=== PATIENT | female | born 1930 | race Caucasian/White ===

== ENCOUNTER 2018-11-05 08:14 | Emergency (ER) | payer MEDICARE, OTHER ==
[~2018-11-05] VITALS: Ht 162.6 cm; Wt 52.4 kg
[2018-11-05] MEDS ORDERED: PRAV20TA2 PO (08:26)
[2018-11-05 09:09] LABS: BASO % 0.3 % (0.0-1.0); EOS # 0.1 10^3/uL (0.0-0.5); EOS % 0.5 % (0.0-3.0); HEMATOCRIT 39.5 % (36.0-47.0); HEMOGLOBIN 13.6 g/dl (12.0-15.5); LYMPH # 1.4 10^3/uL (1.5-5.0); LYMPH % 9.1 % (24.0-44.0); MEAN CORPUSCULAR HEMOGLOBIN 30.7 pg (27.0-33.0); MEAN CORPUSCULAR HGB CONC 34.4 g/dl (32.0-36.5); MEAN CORPUSCULAR VOLUME 89.2 fl (80.0-96.0); MONO # 1.3 10^3/uL (0.0-0.8); MONO % 8.7 % (0.0-5.0); NEUTROPHILS # 12.4 10^3/uL (1.5-8.5); NEUTROPHILS % 80.7 % (36.0-66.0); PLATELET COUNT, AUTOMATED 176 10^3/uL (150-450); RED BLOOD COUNT 4.43 10^6/uL (4.00-5.40); WHITE BLOOD COUNT 15.3 10^3/uL (4.0-10.0)
[2018-11-05 09:25] LABS: ALT/SGPT 14 U/L (12-78); BLOOD UREA NITROGEN 15 MG/DL (7-18); CALCIUM LEVEL 8.7 MG/DL (8.8-10.2); CARBON DIOXIDE LEVEL 25 MEQ/L (21-32); CHLORIDE LEVEL 98 MEQ/L (98-107); CREATININE FOR GFR 0.48 MG/DL (0.55-1.30); GLOMERULAR FILTRATION RATE > 60.0 (>32); GLUCOSE, FASTING 116 MG/DL (70-100); POTASSIUM SERUM 3.8 MEQ/L (3.5-5.1); SODIUM LEVEL 130 MEQ/L (136-145); TOTAL PROTEIN 6.6 GM/DL (6.4-8.2)
[2018-11-05] MEDS ORDERED: DOXY100C37 PO (09:58)
[2018-11-05 10:15] VITALS: BP 142/76
--- NOTE | 2018-11-05 10:21 | REP ---
CHEST, TWO VIEWS: Two views of the chest are performed. There are no prior studies for comparison. There is a band of density in the right upper lobe inferolaterally, which could represent a small area of infiltrate versus fibrosis. No other significant abnormal parenchymal opacity is seen. There is mild cardiomegaly. There is mild calcification of the thoracic aorta. The mediastinal silhouette is otherwise unremarkable. There is osteopenia with mild degenerative changes of the spine. IMPRESSION: Small area of focal infiltrate or fibrosis right upper lobe. Mild cardiomegaly. Electronically Signed by Mendoza Sterling MD 11/05/2018 10:58 A
--- NOTE | 2018-11-05 19:21 | ECGEPIP ---
[facility] - ED Test Date: 2018-11-05 Pat Name: COOPER PINK Department: Room: - Gender: Female [employer]er: : 1930 Requested By: Shandra Dsouza Order Number: [id number] Reading MD: Jerardo Last Measurements Intervals [place] Rate: 78 P: 55 ME: 177 QRS: 46 QRSD: 78 T: 36 QT: 343 QTc: 391 Interpretive Statements SINUS RHYTHM WITH OCCASIONAL SUPRAVENTRICULAR PREMATURE COMPLEXES POSSIBLE LEFT ATRIAL ENLARGEMENT NO PRIORS FOR COMPARISON Electronically Signed on 11-05-2018 19:21:35 EDT by Jerardo Last
== END 2018-11-05 10:16 | disposition home or self-care (01) ==
LOC: M ED 08:14
DX: R91.8 Other nonspecific abnormal finding of lung field (principal); I51.7 Cardiomegaly; J34.89 Other specified disorders of nose and nasal sinuses; R05 Cough; R51 Headache; E78.5 Hyperlipidemia, unspecified; Z79.899 Other long term (current) drug therapy

== ENCOUNTER 2019-11-21 14:41 | Emergency (ER) | payer MEDICARE, OTHER ==
[~2019-11-21] VITALS: Ht 162.6 cm; Wt 54.5 kg
[~2019-11-21 14:41] MED LIST: DOXY100C37 PO; PRAV20TA2 PO
[2019-11-21] MEDS ORDERED: VITALIQ26 XX (14:59)
[2019-11-21] MEDS ORDERED: PRESCAP PO (14:59)
--- NOTE | 2019-11-21 15:59 | REPVR ---
PROCEDURE INFORMATION: Exam: CT Maxillofacial Without Contrast Exam date and time: 11/21/2019 3:14 PM Age: 88 years old Clinical indication: Injury or trauma; Fall; Initial encounter; Blunt trauma (contusions or hematomas); Eyelid and orbit/periorbital; Upper right TECHNIQUE: Imaging protocol: Computed tomography images of the face without contrast. Radiation optimization: All CT scans at this facility use at least one of these dose optimization techniques: automated exposure control; mA and/or kV adjustment per patient size (includes targeted exams where dose is matched to clinical indication); or iterative reconstruction. COMPARISON: No relevant prior studies available. FINDINGS: Orbits: Bilateral prior cataract surgery. Bones/joints: Nondisplaced fracture right zygomatic process of temporal bone. Minimally displaced fractures posterior wall right maxillary sinus. Nondisplaced fractures anterior superolateral right orbital wall. Comminuted mildly displaced fractures of the upper right zygomaticofrontal arch. Mildly comminuted fracture inferolateral right maxillary sinus. Minimally displaced fracture medial right orbital floor (no soft tissue herniation). Left temporomandibular joint primary osteoarthritis. Paranasal sinuses: The dependent fluid/hemorrhage posterior right maxillary sinus. Soft tissues: Mild superficial soft tissue edema adjacent to the right zygomaticofrontal arch. IMPRESSION: Right trimalar/orbital floor fractures. Electronically signed by: Omar Bryan On 11/21/2019 15:59:02 PM
--- NOTE | 2019-11-21 16:03 | REPVR ---
PROCEDURE INFORMATION: Exam: CT Head Without Contrast Exam date and time: 11/21/2019 3:14 PM Age: 88 years old Clinical indication: Injury or trauma; Fall; Initial encounter; Blunt trauma (contusions or hematomas) TECHNIQUE: Imaging protocol: Computed tomography of the head without contrast. Radiation optimization: All CT scans at this facility use at least one of these dose optimization techniques: automated exposure control; mA and/or kV adjustment per patient size (includes targeted exams where dose is matched to clinical indication); or iterative reconstruction. COMPARISON: No relevant prior studies available. FINDINGS: Brain: Moderate hypoattenuating foci are noted in the anterior lateral ventricular periventricular white matter bilaterally. Mild left globus pallidus calcification. No intracranial hemorrhage. No mass or acute cortical infarction identified. Ventricles: Prominence of the subarachnoid spaces is consistent with the patient's age of 88 years. Disproportionate enlargement of the lateral ventricles is present with an Grajeda ratio of 40.0%. The anterior third ventricular transverse dimension is 10.8 mm. The fourth ventricle is normal in size. Bones/joints: Unremarkable. No acute fracture. Paranasal sinuses: Opacified upper right maxillary sinus with wall thickening. Mastoid air cells: Visualized mastoid air cells are well aerated. Vasculature: Atherosclerotic calcifications are present involving the carotid artery siphons bilaterally and the left vertebral artery. Soft tissues: Unremarkable. IMPRESSION: 1. Disproportionate prominence of the lateral and third ventricles. Recommend clinical exclusion of symptoms of normal pressure hydrocephalus. Otherwise, age appropriate supratentorial and infratentorial atrophy. 2. Moderate chronic white matter microvascular ischemic disease. 3. No acute intracranial injury identified. 4. Chronic right maxillary sinusitis. Electronically signed by: Omar Bryan On 11/21/2019 16:02:37 PM
--- NOTE | 2019-11-21 16:10 | REPVR ---
PROCEDURE INFORMATION: Exam: CT Cervical Spine Without Contrast Exam date and time: 11/21/2019 3:14 PM Age: 88 years old Clinical indication: Injury or trauma; Fall; Initial encounter; Blunt trauma TECHNIQUE: Imaging protocol: Computed tomography images of the cervical spine without contrast. Radiation optimization: All CT scans at this facility use at least one of these dose optimization techniques: automated exposure control; mA and/or kV adjustment per patient size (includes targeted exams where dose is matched to clinical indication); or iterative reconstruction. COMPARISON: No relevant prior studies available. FINDINGS: Vertebrae: Left C4-C5 facet fusion. Mild C6-C7 and C7-T1 anterolisthesis. Discs/Spinal canal/Neural foramina: Moderate right C3-C4 primary facet osteoarthritis. Mild left C3-C4 primary facet osteoarthritis. Moderate right C3-C4 neural foraminal narrowing. Moderate right C5-C6 and C6-C7 primary facet osteoarthritis. Mild bilateral C7-T1 primary facet osteoarthritis. Other bones/joints: Healed right mandibular condylar neck fracture. Rudimentary bilateral C7 cervical ribs. Soft tissues: Unremarkable. Thyroid: Multiple bilateral thyroid hypodensities, largest on the right measuring 12 mm. Lungs: Lung apices are normal. IMPRESSION: 1. Degenerative changes as above. 2. No acute cervical spinal bony injury identified. 3. Recommend nonemergent thyroid sonography for further evaluation of a possible right thyroid nodule. COMMENTS: Consistent with the [employer]'s Incidental Findings Committee white paper (J Am Kade Radiol 2015): In patients aged 35 years and older with an incidental thyroid nodule equal to or greater than 1.[address], MRI or extrathyroidal US, further evaluation with dedicated thyroid US is recommended for patients with normal life expectancy and without comorbidities. For smaller nodules without suspicious features, no further evaluation or follow up is recommended. Electronically signed by: Omar Bryan On 11/21/2019 16:10:20 PM
--- NOTE | 2019-11-21 16:14 | REPVR ---
PROCEDURE INFORMATION: Exam: XR Right Knee Exam date and time: 11/21/2019 3:22 PM Age: 88 years old Clinical indication: Injury or trauma; Fall; Initial encounter; Abrasion; Knee; Right TECHNIQUE: Imaging protocol: XR Right knee. Views: Frontal, lateral, 2 oblique and patellar views. COMPARISON: No relevant prior studies available. FINDINGS: Bones/joints: Normal. Soft tissues: Normal. IMPRESSION: No acute findings. Electronically signed by: Omar Bryan On 11/21/2019 16:14:22 PM
--- NOTE | 2019-11-21 16:18 | REPVR ---
PROCEDURE INFORMATION: Exam: XR Right Ribs with PA Chest, 3 Views Exam date and time: 11/21/2019 3:22 PM Age: 88 years old Clinical indication: Injury or trauma; Fall; Initial encounter; Rib area; Sprain or strain; Additional info: Trauma, right rib pain TECHNIQUE: Imaging protocol: XR Right ribs 3 views with PA chest. COMPARISON: No relevant prior studies available. FINDINGS: Lungs: Unremarkable. No consolidation. Pleural space: No pleural effusion. No pneumothorax. Heart/Mediastinum: No cardiomegaly. Bones/joints: Possible minimally displaced fracture of the anterolateral right 8th rib. Organs: The gallbladder is likely surgically absent, with metallic clips overlying the gallbladder fossa. IMPRESSION: 1. Possible minimally displaced fracture of the anterolateral right 8th rib. Clinical correlation with manual palpation is recommended. 2. Prior cholecystectomy. Electronically signed by: Omar Bryan On 11/21/2019 16:18:52 PM
[2019-11-21] MEDS ORDERED: ACETAMINOPHEN TAB 650MG DOSE (2X325MG) PO ONE (17:30)
[2019-11-21] MEDS ORDERED: DERMABOND TOPICAL SKIN ADHESIVE TOP ONE (17:30)
[2019-11-21 18:37] VITALS: BP 156/72
--- NOTE | 2019-11-21 19:49 | ED PDOC ---
Post-Departure Follow-Up dr griggs faxed formal report of ct c spine for fu Ajay Kelley MD Nov 21, 2019 19:49
== END 2019-11-21 19:00 | disposition home or self-care (01) ==
LOC: M ED 14:41
DX: S02.40EA Zygomatic fracture, right side, initial encounter for closed fracture (principal); S02.40CA Maxillary fracture, right side, initial encounter for closed fracture; S06.0X9A Concussion with loss of consciousness of unspecified duration, initial encounter; S22.31XA Fracture of one rib, right side, initial encounter for closed fracture; S80.01XA Contusion of right knee, initial encounter; W01.0XXA Fall on same level from slipping, tripping and stumbling without subsequent striking against object, initial encounter; W10.1XXA Fall (on)(from) sidewalk curb, initial encounter; Y92.511 Restaurant or cafe as the place of occurrence of the external cause; Y93.9 Activity, unspecified; Y99.9 Unspecified external cause status; Z87.891 Personal history of nicotine dependence; E78.5 Hyperlipidemia, unspecified

== ENCOUNTER → 2020-02-07 | Outpatient (REF) | payer MEDICARE, OTHER ==
[~2020-02-07] MED LIST changes: +PRESCAP PO; +VITALIQ26 XX
== END ==
LOC: M LAB REF 17:22
PROVIDERS: ATTEND Internal Medicine Endocrinology, Diabetes & Metabolism
DX: E04.2 Nontoxic multinodular goiter (principal)

== ENCOUNTER 2020-03-26 09:32 | Outpatient (CLI) | payer MEDICARE, OTHER ==
[~2020-03-26] VITALS: Ht 162.6 cm; Wt 55.0 kg
[2020-03-26 10:00] VITALS: BP 152/67
[2020-03-26] MEDS ORDERED: ZOLEDRONIC ACID 5 MG in IV 1 EA IV ONE (10:00)
[2020-03-26 11:20] VITALS: BP 169/76
== END 2020-03-26 11:20 | disposition home or self-care (01) ==
LOC: M INFU 09:32
PROVIDERS: ATTEND Internal Medicine Endocrinology, Diabetes & Metabolism
DX: M81.0 Age-related osteoporosis without current pathological fracture (principal)
CPT/HCPCS: 96365; J3489

== ENCOUNTER → 2020-05-24 | Outpatient (CLI) | payer MEDICARE, OTHER ==
[2020-05-24 12:51] LABS: BLOOD UREA NITROGEN 16 MG/DL (7-18); CALCIUM LEVEL 9.2 MG/DL (8.8-10.2); CARBON DIOXIDE LEVEL 31 MEQ/L (21-32); CHLORIDE LEVEL 101 MEQ/L (98-107); CREATININE FOR GFR 0.55 MG/DL (0.55-1.30); GLOMERULAR FILTRATION RATE > 60.0 (>32); GLUCOSE, FASTING 80 MG/DL (70-100); POTASSIUM SERUM 4.6 MEQ/L (3.5-5.1); SODIUM LEVEL 135 MEQ/L (136-145)
[2020-05-24 13:03] LABS: TOTAL 25(OH) VITAMIN D 45.5 NG/ML (30.0-100.0)
== END ==
LOC: M LAB 12:01
PROVIDERS: ATTEND Internal Medicine Endocrinology, Diabetes & Metabolism
DX: M81.0 Age-related osteoporosis without current pathological fracture (principal); E55.9 Vitamin D deficiency, unspecified